=== PATIENT | male | born 1940 | race Caucasian/White ===

== ENCOUNTER → 2017-01-23 | Outpatient (CLI) | payer MEDICARE | END | disposition home or self-care (01) | LOC: LAB.O 10:44 | PROVIDERS: ATTEND Family Medicine | DX: E55.9 Vitamin D deficiency, unspecified (principal) ==

== ENCOUNTER → 2017-07-27 | Outpatient (CLI) | payer MEDICARE | END | disposition home or self-care (01) | LOC: GMAL 11:31 | PROVIDERS: ATTEND Family Medicine | DX: Z12.5 Encounter for screening for malignant neoplasm of prostate (principal); R23.3 Spontaneous ecchymoses; E55.9 Vitamin D deficiency, unspecified | CPT/HCPCS: 82306; 85610; 85730; G0103 ==

== ENCOUNTER → 2017-09-05 | Outpatient (CLI) | payer MEDICARE ==
--- NOTE | 2017-09-05 12:35 | RAD ---
EXAM DESCRIPTION: Chest,2 Views CLINICAL HISTORY: 77 years Male, 782.6 COMPARISON: Portable chest 05/22/2011. TECHNIQUE: PA and lateral. FINDINGS: Lung volumes bilaterally are decreased since the prior study. Atelectasis in the lingula. Basilar atelectasis versus infiltrate right lower lobe and possible pleural effusion. No pneumothorax bilaterally. Sternotomy wires and cardiac surgical hardware are now present compared to the prior study. Heart size and pulmonary vascularity are not enlarged. IMPRESSION: Atelectasis in the lingula. Infiltrate or atelectasis in the right lower lobe with small right pleural effusion. This represents interval change since the prior study along with sternotomy wires and cardiac surgery. Electronically signed by: Lux Linton MD 09/05/2017 12:34 PM [employer]
== END | disposition home or self-care (01) ==
LOC: LAB.O 11:53
PROVIDERS: ATTEND Internal Medicine Interventional Cardiology
DX: J45.991 Cough variant asthma (principal); R23.1 Pallor

== ENCOUNTER → 2018-01-18 | Outpatient (CLI) | payer MEDICARE | LOC: GMAL 14:48 | PROVIDERS: ATTEND Family Medicine | DX: D50.8 Other iron deficiency anemias (principal) ==

== ENCOUNTER → 2019-04-16 | Outpatient (CLI) | payer MEDICARE | LOC: LAB.NP 10:15 | PROVIDERS: ATTEND Family Medicine | DX: E53.8 Deficiency of other specified B group vitamins (principal); I10 Essential (primary) hypertension; E10.9 Type 1 diabetes mellitus without complications; D50.8 Other iron deficiency anemias; E55.9 Vitamin D deficiency, unspecified; E78.49 Other hyperlipidemia; Z12.5 Encounter for screening for malignant neoplasm of prostate | CPT/HCPCS: 82306; 82607; 82728; 83540; 83550; G0103 ==

== ENCOUNTER → 2019-10-08 | Outpatient (CLI) | payer MEDICARE | LOC: GMAL 10:17 | PROVIDERS: ATTEND Family Medicine | DX: D50.8 Other iron deficiency anemias (principal); E11.8 Type 2 diabetes mellitus with unspecified complications; I10 Essential (primary) hypertension; E78.49 Other hyperlipidemia ==

== ENCOUNTER → 2020-02-10 | Outpatient (CLI) | payer MEDICARE | LOC: GMAL 16:03 | PROVIDERS: ATTEND Family Medicine | DX: D50.8 Other iron deficiency anemias (principal); E10.9 Type 1 diabetes mellitus without complications; I10 Essential (primary) hypertension; E78.49 Other hyperlipidemia ==

== ENCOUNTER → 2020-04-02 | Outpatient (CLI) | payer MEDICARE | LOC: GMAL 16:53 | PROVIDERS: ATTEND Family Medicine | DX: M79.671 Pain in right foot (principal) ==